=== PATIENT | male | born 1975 | race Caucasian/White ===

== ENCOUNTER → 2017-04-21 | Day surgery (SDC) | payer OTHER ==
[~2017-04-21] VITALS: Ht 182.9 cm; Wt 70.3 kg
[~2017-04-21] MED LIST: 0.9% Sodium Chloride 1,000 ML IV PRN; Sodium Chloride LOK Flush 10 mL Syringe IV PRN; fentaNYL-PF 50 mCg/mL 2 mL Inj IVPUSH PRN
[2017-04-21 15:38] VITALS: BP 129/80; PULSE 71; RESP 16; O2SAT 99
[2017-04-21 16:47] VITALS: BP 103/68; PULSE 69; RESP 10; O2SAT 98
[2017-04-21 16:57] VITALS: BP 107/69; PULSE 67; RESP 16; O2SAT 99
[2017-04-21 17:07] VITALS: BP 114/74; PULSE 67; RESP 16; O2SAT 99
--- NOTE | 2017-04-21 17:08 | ENDO ---
[address] [address] ENDOSCOPY PROCEDURE PATIENT: ROMAIN PONCE : 1975 MR#: [id number] ADMIT: 04/21/2017 JOB ID: [id number] PROCEDURE: Colonoscopy. INDICATIONS: A 42-year-old male with symptoms of left lower quadrant abdominal pain, erratic stools, and some red blood per rectum. He has got abnormal imaging with suggestion of thickening in the rectosigmoid region. Endoscopic interrogation is therefore pursued. EQUIPMENT: [employer] H [address] AL. SEDATION: Versed 7 mg and 150 mcg fentanyl. COMPLICATIONS: None identified. BOWEL PREPARATION: Two Fleet enemas were accomplished earlier this afternoon and in the left colon it was completely appropriate and very adequate. PROCEDURE INFORMATION: After the risks and benefits were explained, written and verbal informed consent was obtained. The patient was brought into the endoscopy suite and placed into the left lateral decubitus position. Sedation was achieved using the above stated medications with the addition of oxygen via nasal cannula. Digital rectal examination was accomplished. No significant pathology appreciated. The scope was introduced into the rectum and advanced under direct visualization to the level of the cecum, as identified by the ileocecal valve. I did not see the appendiceal orifice as it was covered in stool. We spent about 10 minutes trying to navigate into the TI but the stool debris made this a little difficult and we were not successful. The scope was withdrawn to carefully evaluate the distal mucosa for any defects or lesions. Retroflexed views were avoided in the rectum. Multiple direct views were made through the dentate line for exclusion of pathology. The colon was decompressed and the scope removed from the patient, who tolerated the procedure well. FINDINGS: I did not see any evidence of proctitis. No evidence of any inflammation at the rectosigmoid region. No inflammation in the sigmoid descending. Prep was very adequate all the way up to about the splenic flexure. Throughout the transverse and ascending there was adherent greenish brown stool debris but we were able to navigate all the way to the cecum as above. I did not see any underlying mucosal inflammation anywhere else. There was a diminutive polyp around the rectosigmoid removed with cold forceps. No other significant pathology appreciated. ENDOSCOPIC DIAGNOSES: 1. Diminutive polyp. 2. Twisty rectosigmoid region. 3. No sign of ulcerative colitis or Crohn's. 4. Hemorrhoids, not mentioned above. RECOMMENDATIONS: 1. Stay hydrated and active. 2. Fiber supplementation is recommended. Two tablespoons ground flaxseed fiber mixed with 8 ounces of water or juice daily. 3. Await histopathology. If adenoma is identified, then a formal colonoscopy will be indicated. 4. The source for the patient's abdominal symptoms is not readily identifiable at today's exam. 5. Follow up on clinical response this coming week in [facility].
--- NOTE | 2017-04-26 16:32 | PATH ---
SURGICAL PATHOLOGY Attending Physician:Juan Morataya CASE STATUS: Signed Out PATIENT NAME: ROMAIN PONCE PID: [id number] : 1975 DATE COLLECTED:04/21/2017 00:00 SPECIMEN: Colon, Polyp CLINICAL HISTORY: 1). RECTO-SIGMOID POLYP X1 FINAL DIAGNOSIS: Rectosigmoid Colon Polyp, Biopsy: Tubular adenoma. ICD10: D12.7 GROSS DESCRIPTION: Received in formalin, labeled with the patient's name and "rectosig" is one fragment of crenshaw soft tissue measuring 0.4 x 0.2 x 0.1 cm. The fragment is totally submitted in one cassette. [id number]) ICD-9 CODES: CPT CODES: 1: 08105 Electronically Signed Out William Case MD, Ph.D. [facility] [address], [place] [address] Technical component performed at [facility], [address] [place] [address] Ave[address], [place], [address]
== END | disposition home or self-care (01) ==
LOC: END 15:26
PROVIDERS: ATTEND Internal Medicine Gastroenterology
DX: D12.7 Benign neoplasm of rectosigmoid junction (principal); K64.8 Other hemorrhoids; K63.89 Other specified diseases of intestine; K92.1 Melena; R10.32 Left lower quadrant pain; F17.210 Nicotine dependence, cigarettes, uncomplicated